=== PATIENT | female | born 1995 | race Caucasian/White ===

== ENCOUNTER 2017-09-04 23:53 | Emergency (ER) | payer MEDICAID, SELFPAY | END 2017-09-05 03:10 | disposition home or self-care (01) | PROVIDERS: Emergency Provider Emergency Medicine; Visit Provider Emergency Medicine | DX: L81.8 Other specified disorders of pigmentation; N39.0 Urinary tract infection, site not specified; S39.011A Strain of muscle, fascia and tendon of abdomen, initial encounter | CPT/HCPCS: 81001; 87086; 87275; 87276; 99283 ==

== ENCOUNTER → 2021-06-29 17:32 | Outpatient (CLI) | payer OTHER, SELFPAY | PROVIDERS: Visit Provider Nurse Practitioner Family | DX: Z20.822 Contact with and (suspected) exposure to COVID-19 (principal) | CPT/HCPCS: C9803; U0003; U0005 ==

== ENCOUNTER 2021-11-05 06:26 | Emergency (ER) | payer OTHER, SELFPAY ==
[2021-11-05 06:31] VITALS: BMI 26.5
[2021-11-05 06:33] VITALS: BP 154/72; PULSE 93; RESP 18; TEMP 36.8; O2SAT 100; BMI 26.5
--- NOTE | 2021-11-05 07:01 | [facility].EDDENT ---
ED Disposition Clinical Impression: Dental caries, Pain, dental Disposition: Home, Self-Care Condition on Discharge: Good Instructions: DI for Dental Pain Additional Instructions: call pcp and dentist for follow up Prescriptions: cephALEXin [cephALEXin 500mg capsule*] 500 mg PO TID #30 cap Transmission Status: Pending to [id number] Forms: Work/School Release - Critical Care Critical Care Time: No Attestation: On , the high probability of a clinically significant, sudden or life threatening deterioration of the following system(s) required my full and direct attention, intervention and personal management. The time I documented below is in addition to time spent performing reported procedures but includes the following listed in this critical care notation. Medical Decision Making - Medical Records Medical records reviewed: Yes: I reviewed the patient's medical records. - Demetrio Inquiry Pt receiving controlled substance: No Vital Signs: 11/05/21 06:33 Temperature 98.3 F Temperature Source Oral Pulse Rate [Right Brachial] 93 H Respiratory Rate 18 Blood Pressure [Right Arm] 154/72 H Blood Pressure Mean [Right Arm] 99 Blood Pressure Source [Right Arm] Automatic Cuff Blood Pressure Position [Right Arm] Sitting 02 Sat by Pulse Oximetry 100 Oxygen Delivery Method Room Air - Lab Data Lab results reviewed: Yes: I reviewed the patient's lab results. Orders (Tests/Meds): ED MEDICATIONS Discontinued Medications Generic Name Dose Route Start Last Admin Trade Name Chanoq PRN Reason Stop Dose Admin Clindamycin HCl 300 mg 11/05/21 06:34 11/05/21 06:40 Clindamycin 150mg Capsule PO 11/05/21 06:35 300 mg ONCE ONE Administration Ketorolac Tromethamine 30 mg 11/05/21 06:33 11/05/21 06:40 Ketorolac 30mg/Ml Vial IM 11/05/21 06:34 30 mg ONCE ONE Administration Lidocaine HCl 15 ml 11/05/21 06:32 11/05/21 06:40 Lidocaine 2% Viscous Jovana 15ml Udc PO 11/05/21 06:33 15 ml ONCE ONE Administration Medical Decision Narrative: has dental pain assoc with caries - no abscess Dental HPI - General Chief complaint: Dental/Oral Stated complaint: Toothache Time Seen by Provider: 11/05/21 07:00 Mode of Arrival: Family Vehicle Source of Information: Patient, Medical Record Limitations: No Limitations Description of Symptoms (Recalled from ER Triage Doc. by RN): right upper jaw/tooth pain from a 'broken tooth'. states she came into ER after having pain all night and some mild swelling. I figured it will take a couple of days to get into the dentist . - History of Present Illness HPI Narrative: pt with upper rt jaw pain with hx of dental disease MD Complaint: tooth pain Onset (ago): day(s) Duration: intermittent Severity: moderate Context: history of dental caries Treatment prior to arrival: oral analgesic - Related Data Previous Rx's Medication Instructions Recorded cephALEXin [cephALEXin 500mg 500 mg PO TID #30 cap 11/05/21 capsule*] Allergies Allergy/AdvReac Type Severity Reaction Status Date / Time No Known Allergies Allergy Verified 11/05/21 06:38 [facility] History - Hepatitis A Screen Drug use history?: No High risk sexual behaviors?: No History of sexually transmitted infection?: No Currently employed?: No Childcare worker?: No Do you have indoor plumbing?: Yes Do you have electricity?: Yes Attestation statement:: This patient has been screened for Hepatitis A risk factors. I have reviewed the patient's past medical history: Yes - Social History Smoking Status: Current every day smoker Tobacco Type: cigarettes # Packs/Day (cigarettes): 1 Alcohol Intake: never Occupational Status: employed Family Hx:: Non-contributory ROS Obtained: Yes All systems reviewed & no additional complaints - Constitutional Constitutional: Denies fever(s) - Eyes Eyes: Denies change in vision - ENT Ears, Nose, Mouth, and Throat: Reports as p
[2021-11-05 07:14] VITALS: BP 115/78; PULSE 80; RESP 16; TEMP 36.8; O2SAT 95
== END 2021-11-05 07:15 | disposition home or self-care (01) ==
LOC: ER 07:13
PROVIDERS: Emergency Provider Emergency Medicine
DX: K02.9 Dental caries, unspecified (principal); F17.210 Nicotine dependence, cigarettes, uncomplicated
CPT/HCPCS: 96372; 99282